=== PATIENT | male | born 1955 | race Caucasian/White ===

== ENCOUNTER 2019-05-19 16:11 | Inpatient (IN) | payer MEDICARE, OTHER ==
[~2019-05-19] VITALS: Ht 177.8 cm; Wt 81.6 kg
--- NOTE | 2019-05-19 16:12 | NUR ---
PT BIBRA 37 C/O SOB AFTER TOOTH EXTRACTION, PT IS ON 76% ON ROOM AIR, PT IS AAOX4, NOTED RESPIRATORY DISTRESS, HOOKED TO C-PAP MONITOR BY RT, HOOKED TO MONITOR, KEPT RESTED AND COMFORTABLE, WILL CONTINUE TO MONITOR.
[2019-05-19] MEDS ORDERED: NITROGLYCERIN 0.4 MG/TAB BOTTLE ONE (16:13)
--- NOTE | 2019-05-19 16:15 | NUR ---
SEEN AND EXAMINED BY .
--- NOTE | 2019-05-19 16:20 | NUR ---
PATIENT PLACED IN BIPAP, W SETTINGS OF: IPAP/EPAP: 15/5 RATE: 14 02: 60%
--- NOTE | 2019-05-19 16:24 | NUR ---
RT NOTE PT PLACED ON BIPAP PER MD ORDER. ST 15 BUR 12 100%. ALARMS SET PER PROTOCOL AND AUDIBLE. BIPAP PLUGGED IN TO RED OUTLET. AMBU BAG AT BED SIDE. Addendum: 05/19/19 at 1625 by DEVANTE HADLEY RT Amended: Links added.
[2019-05-19 16:28] LABS: BASOPHILS # (AUTO) 0.1 /CMM (0.0-0.2); EOSINOPHILS % (AUTO) 0.4 % (0.0-6.0); HEMATOCRIT 45 % (39-51); HEMOGLOBIN 14.5 g/dL (13.5-17.5); LYMPHOCYTES # (AUTO) 1.8 /CMM (0.8-4.8); LYMPHOCYTES % (AUTO) 15.4 % (20.0-44.0); MEAN CORPUSCULAR HGB CONC 32 g/dl (31.0-36.0); MEAN CORPUSCULAR VOLUME 81 fL (80-96); MONOCYTES # (AUTO) 0.5 /CMM (0.1-1.30); MONOCYTES % (AUTO) 4.4 % (2.0-12.0); NEUTROPHILS # (AUTO) 9.1 /CMM (1.8-8.9); NEUTROPHILS % (AUTO) 78.8 % (43.0-81.0); PLATELET COUNT (AUTO) 224 /CMM (150-450); RED BLOOD CELL COUNT(AUTO) 5.55 MIL/uL (4.5-6.0); WHITE BLOOD COUNT (AUTO) 11.6 K/uL (4.3-11.0)
[2019-05-19] MEDS ORDERED: NITROGLYCERIN 0.4 MG/TAB BOTTLE SL ONE (16:30)
[2019-05-19] MEDS ORDERED: ASPIRIN 81 MG TAB.CHEW PO ONE (16:30)
[2019-05-19] MEDS ORDERED: NTG 50 MG/D5W250 ML BOTTL 250 ML IV PRN (16:30)
--- NOTE | 2019-05-19 16:34 | NUR ---
NTG 50MG/250ML IN D5W STARTED AT 40MCG AT 12ML/HR ORDERED BY DR ROMERO.
[2019-05-19 16:39] LABS: CALCIUM, SERUM 9.5 mg/dL (8.5-10.1); CREATININE 1.1 mg/dL (0.6-1.3); POTASSIUM 3.2 mmol/L (3.5-5.1)
[2019-05-19] MEDS ORDERED: ASPIRIN 81 MG TAB.CHEW ONE (16:39)
[2019-05-19] MEDS ORDERED: TICA90TA PO (16:41)
[2019-05-19] MEDS ORDERED: PIOG30TA10 PO (16:41)
[2019-05-19] MEDS ORDERED: METO25TA20 PO (16:41)
[2019-05-19] MEDS ORDERED: LISI-603 PO (16:41)
[2019-05-19] MEDS ORDERED: ASPI-1152 PO (16:41)
[2019-05-19] MEDS ORDERED: ATOR40TA PO (16:41)
[2019-05-19] MEDS ORDERED: SITA1TAB6 PO (16:41)
[2019-05-19] MEDS ORDERED: NITR0.4T48 PO (16:41)
--- NOTE | 2019-05-19 16:45 | NUR ---
RECEIVED VERBAL ORDER FROM DR ROMERO TO INCREASE NTG TO 60 MCG/MIN. BP 161/115, HR 96. CARRIED OUT
[2019-05-19] MEDS ORDERED: POTASSIUM CHLORIDE 20 MEQ TAB.PRT.SR PO ONE ×2 (17:29→17:30)
[2019-05-19] MEDS ORDERED: FUROSEMIDE 20 MG/2 ML VIAL ONE (17:29)
[2019-05-19 17:30] LABS: ABG BASE EXCESS -0.9 mmol/L; ABG OXYGEN SATURATION 82.8 % (92.0-98.5); ABG PCO2 37.2 mmHg (35.0-45.0); ABG PH 7.414 (7.350-7.450); ABG PO2 47.2 mmHg (75.0-100.0); COHb 0.7 % (0.5-1.5); MetHb 0.5 % (0.0-1.5); O2Hb 81.8 % (94.0-97.0); SITE, ABG Other; VENT MODE, BG ST 15/5 60%
[2019-05-19] MEDS ORDERED: FUROSEMIDE 20 MG/2 ML VIAL IV ONE (17:30)
--- NOTE | 2019-05-19 17:42 | NUR ---
RT AT BEDSIDE. NEW BIPAP SETTINGS: IPAP/EPAP: 14/5 RATE: 15 O2: 40%
--- NOTE | 2019-05-19 18:29 | NUR ---
EPIC paged for panel call, awaiting call back
--- NOTE | 2019-05-19 18:45 | NUR ---
Dr. Lowe called back for panel call
--- NOTE | 2019-05-19 19:05 | NUR ---
CHLOE ABRAHAM AT BEDSIDE FOR EVAL.
--- NOTE | 2019-05-19 19:30 | NUR ---
ICU BED 250
--- NOTE | 2019-05-19 19:32 | NUR ---
REPORT GIVEN TO ARISTEO GHOSH FOR [facility]
[2019-05-19] MEDS ORDERED: ALBUTEROL FS 2.5 MG/0.5 ML VIAL.NEB NEB PRN (20:00)
[2019-05-19] MEDS ORDERED: DEXTROSE 50%-WATER 50 ML DISP.SYRIN IV PRN (20:00)
[2019-05-19] MEDS ORDERED: NTG 50 MG/D5W250 ML BOTTL 25 ML IV PRN (20:00)
[2019-05-19] MEDS ORDERED: POTASSIUM CL. PREMIX PERIPHER. 50 ML IV SCH (20:00)
[2019-05-19] MEDS ORDERED: IPRATROPIUM BROMIDE 14 GM INHALER (or 12.9 GM) IH PRN (20:00)
--- NOTE | 2019-05-19 20:08 | NUR ---
REPORT GIVEN TO AUGIE PRADHAN FOR [facility].
--- NOTE | 2019-05-19 20:19 | NUR ---
RT DISCONTINUED BIPAP. PT TOLERATING WELL WITHOUT ANY RESP DISTRESS. O2 SAT 95%
--- NOTE | 2019-05-19 20:30 | NUR ---
NTG TITRATED DOWN TO 50MCG/HR FROM 60MCG/HR
--- NOTE | 2019-05-19 20:40 | NUR ---
NTG TITRATED DOWN TO 40MCG/HR
--- NOTE | 2019-05-19 20:50 | NUR ---
NTG TITRATED DOWN TO 30MCG/HR VS: HR:76 BP: 136/66 R: 18 O2%: 95. TOLERATING WELL. VSS. AWARE
--- NOTE | 2019-05-19 21:00 | NUR ---
NTG DOWN TO 20MCG/HR
--- NOTE | 2019-05-19 21:10 | NUR ---
NTG TITRATED DOWN TO 10MCG/HR
--- NOTE | 2019-05-19 21:16 | NUR ---
called RN SUP for LISETH bed waiting for bed assignment
--- NOTE | 2019-05-19 21:19 | NUR ---
LISETH 105
--- NOTE | 2019-05-19 21:20 | NUR ---
NTG DC PER MD ORDER. PT TOLERATING WELL.
--- NOTE | 2019-05-19 21:21 | NUR ---
CORRECTION LISETH BED 106
--- NOTE | 2019-05-19 21:30 | NUR ---
PT TOLERATING WELL ON NTG D/C. VSS STABLE: 71, 137/76, 17, 99
--- NOTE | 2019-05-19 21:34 | NUR ---
REPORT GIVEN TO AUGIE ROMO FOR [facility]
[2019-05-19] MEDS: ATORVASTATIN 40 MG TABLET PO SCH ×2 (22:00→23:06)
--- NOTE | 2019-05-19 22:05 | NUR ---
US AT BEDSIDE
--- NOTE | 2019-05-19 22:25 | NUR ---
PT TRANSPORTED TO UNIT ON [place] WITH EMT AND RN AT BEDSIDE W/ ACLS PROTOCOL. NAD NOTED DURING TRANSPORT. PT AMBULATED FROM GURNEY TO BED W/O ASSIST ON STEADY GAIT.
[2019-05-19 22:46] VITALS: BP 132/79
[2019-05-19] MEDS: BLOOD SUGAR DIAGNOSTIC 1 EACH STRIP IN SCH (23:06)
[2019-05-20] VITALS: BP 121/72
[2019-05-20 04:00] VITALS: BP 133/77
[2019-05-20] MEDS: BLOOD SUGAR DIAGNOSTIC 1 EACH STRIP IN SCH ×3 (05:42→17:03)
--- NOTE | 2019-05-20 06:38 | NUR ---
LISETH RN NOTES AWAKE & RESPONSIVE. NOT IN ANY DISTRESS. NO SOB NOTED. DENIES ANY PAIN OR DISCOMFORT AT THIS TIME. ON TELE SR WITH OCC PVCS WITH BBB @ 67 WITH IV-HL PATENT & INTACT. MONITORED ACCORDINGLY. CALL LIGHT WITHIN REACH. BED IN LOWEST POSITION. SR UP X 2 FOR SAFETY. WILL ENDORSE TO NEXT SHIFT.
--- NOTE | 2019-05-20 07:00 | NUR ---
LISETH RN OPENING NOTES RECEIVED PT LYING ON BED,ALERT/ORIENTED X4.ON TELE HR IS 80 NSR WITH INVERTED T WAVE.ON NC O2 6LPM CONTINUOUSLY,TOLERATING WELL.NO SOB AND ACUTE DISTRESS NOTED.IV LINE IS ON LEFT FA G18,SL.SITE IS CLEAN,DRY AND INTACT.NO INFILTRATION NOTED.FAMILY IS AT BEDSIDE.SAFETY IS MAINTAINED AT ALL TIMES.CALL LIGHT IS WITHIN REACH.WILL CONTINUE TO MONITOR THE PT CLOSELY.
[2019-05-20 08:00] VITALS: BP 132/69
[2019-05-20] MEDS: FUROSEMIDE 40 MG/4 ML VIAL IV SCH ×2 (08:13→16:16)
[2019-05-20] MEDS: ASPIRIN EC 81 MG TABLET.DR PO SCH (08:14)
[2019-05-20] MEDS: AMOX/CLAVULANATE 250 MG TABLET PO SCH ×2 (08:14→21:01)
[2019-05-20] MEDS: LISINOPRIL (20MG) 20 MG TABLET PO SCH (08:14)
[2019-05-20] MEDS: METOPROLOL TARTRATE 25 MG TABLET PO SCH ×2 (08:14→16:17)
[2019-05-20] MEDS ORDERED: PIOGLITAZONE HCL 15 MG TABLET PO SCH (09:00)
[2019-05-20] MEDS ORDERED: PIOGLITAZONE HCL 30 MG PO SCH (09:00)
[2019-05-20] MEDS: TICAGRELOR 90 MG TABLET PO SCH ×2 (09:38→16:16)
[2019-05-20 11:13] LABS: BASOPHILS # (AUTO) 0.1 /CMM (0.0-0.2); EOSINOPHILS % (AUTO) 0.6 % (0.0-6.0); HEMATOCRIT 39 % (39-51); HEMOGLOBIN 12.4 g/dL (13.5-17.5); LYMPHOCYTES % (AUTO) 27.1 % (20.0-44.0); MEAN CORPUSCULAR HGB CONC 32 g/dl (31.0-36.0); MEAN CORPUSCULAR VOLUME 81 fL (80-96); MONOCYTES # (AUTO) 0.7 /CMM (0.1-1.30); MONOCYTES % (AUTO) 9.4 % (2.0-12.0); NEUTROPHILS # (AUTO) 4.5 /CMM (1.8-8.9); NEUTROPHILS % (AUTO) 61.9 % (43.0-81.0); PLATELET COUNT (AUTO) 169 /CMM (150-450); RED BLOOD CELL COUNT(AUTO) 4.77 MIL/uL (4.5-6.0); WHITE BLOOD COUNT (AUTO) 7.3 K/uL (4.3-11.0)
[2019-05-20] MEDS ORDERED: IPRATROPIUM NEB FS 0.5 MG/2.5 ML AMPUL.NEB NEB PRN (11:30)
[2019-05-20 11:38] LABS: CALCIUM, SERUM 8.9 mg/dL (8.5-10.1); POTASSIUM 3.7 mmol/L (3.5-5.1)
[2019-05-20 12:00] VITALS: BP 129/75
[2019-05-20] MEDS: INSULIN REGULAR, HUMAN 100 UNIT/ML 3 ML VIAL SQ PRN ×2 (12:00→17:04)
[2019-05-20 16:00] VITALS: BP 141/69
--- NOTE | 2019-05-20 18:28 | NUR ---
[employer] TECHNICIAN CLOSING NOTES PT IS LYING ON BED,ON 6LPM O2 VIA NC CONTINUOUSLY.NO SOB AND ACUTE DISTRESS NOTED.ON NSR.RESPIRATION IS EVEN AND NONLABORED.IV LINE IS IN PLACE.NO SIGNIFICANT CHANGES NOTED IN THE SHIFT.FAMILY IS AT BEDSIDE.WILL ENDORSE TO [employer]PER[employer] RN FOR [facility].
[2019-05-20 20:00] VITALS: BP 133/74
--- NOTE | 2019-05-20 20:00 | NUR ---
TELE/RN OPENING NOTES PATIENT IN BED,AWAKE, ALERT X3, ABLE TO VERBALIZE NEEDS, ON ROOM AIR WITH SATURATION AT 99%, DENIES PAIN. MONITORED FOR ANY CHANGES. PROVIDED AND OFFERED FLUIDS, SKIN WARM TO TOUCH. SKIN INTACT, LEFT FORE ARM 18 GAUGE PATENT, RECEIVED ENDORSEMENT FROM AM RN FOR [facility]. BLOOD PRESSURE AT 133/74. BED LOCKED, CALL LIGHTS WITHIN REACH. WILL MONITOR.
[2019-05-20] MEDS: ATORVASTATIN 40 MG TABLET PO SCH (21:01)
[2019-05-21] VITALS: BP 148/78
[2019-05-21] MEDS: BLOOD SUGAR DIAGNOSTIC 1 EACH STRIP IN SCH ×2 (00:04→05:55)
[2019-05-21 04:00] VITALS: BP 155/89
--- NOTE | 2019-05-21 06:00 | NUR ---
TELE/RN NOTES PATIENT ABLE TO SLEEP DURING THE NIGHT, ALERT, COOPERATIVE AND PARTICIPATIVE TO CARE, ON OXYGEN VIA NC AT 6LITER BUT ABLE TO VERBALIZE IMPROVED BREATHING THAT HE DOESN NEED THE OXYGEN AT TIMES. BED LOCKED, CALL LIGHTS WITHIN REACH. PROVIDED AND OFFERED FLUIDS, COMPLIANT TO CARE, OV SITE ON LEFT FOREARM PATENT. WILL ENDORSE TO AM RN FOR [facility].
--- NOTE | 2019-05-21 07:00 | NUR ---
SUPERVISOR [employer] OPENING NOTES PATIENT RECEIVED BY PM SHIFT, PATIENT WAS AWAKE AND COOPERATIVE , PATIENT A/O X4. AND IS AWARE OF TREATMENT PLAN AND PLAN OF CARE. PATIENT WAS SATURATING WELL IN ROOM AIR. NO SIGNS OF DISTRESS. PATIENT LUNG SOUNDS CLEAR IN ALL POWELL. PATIENT BED LOWEST POSITION, SAFETY MAINTAINED. CALL LIGHT WITH IN REACH.
[2019-05-21] MEDS: FUROSEMIDE 40 MG/4 ML VIAL IV SCH ×2 (09:00→09:27)
[2019-05-21] MEDS: AMOX/CLAVULANATE 250 MG TABLET PO SCH (09:23)
[2019-05-21] MEDS: METOPROLOL TARTRATE 25 MG TABLET PO SCH (09:23)
[2019-05-21] MEDS: ASPIRIN EC 81 MG TABLET.DR PO SCH (09:23)
[2019-05-21 09:24] VITALS: BP 154/83
[2019-05-21] MEDS: TICAGRELOR 90 MG TABLET PO SCH (09:24)
[2019-05-21] MEDS: LISINOPRIL (20MG) 20 MG TABLET PO SCH (09:24)
--- NOTE | 2019-05-21 10:56 | NUR ---
RT PATIENT AND FAMILY MEMBER REFUSED ABG AND ALL OTHER MEDICAL SERVICES AT THIS TIME. EXPLAINS THAT THEY WANT TO LEAVE AND BEEN SEEN BY PATIENTS PRIMARY PHYSICIAN.
--- NOTE | 2019-05-21 11:00 | NUR ---
HOISTMAN CLOSING NOTES PATIENT WENT AMA, PRIMARY ALLEGRA MARIA WAS INFORMED ABOUT PATIENT
== END 2019-05-21 11:00 | disposition left against medical advice (07) | DRG 189 ==
LOC: ER 16:11 → ICU 19:54 → TELE-TD 21:22 → TELE1 05-20 13:39
PROVIDERS: ADMIT Registered Nurse; ATTEND Registered Nurse
PROC: 5A09357 Assistance with Respiratory Ventilation, Less than 24 Consecutive Hours, Continuous Positive Airway Pressure (ICD-10-PCS; principal; 2019-05-19)
DX: J95.821 Acute postprocedural respiratory failure (principal); I21.A1 Myocardial infarction type 2; I50.41 Acute combined systolic (congestive) and diastolic (congestive) heart failure; I11.0 Hypertensive heart disease with heart failure; I25.2 Old myocardial infarction; E11.9 Type 2 diabetes mellitus without complications; D72.829 Elevated white blood cell count, unspecified; E87.6 Hypokalemia; E78.5 Hyperlipidemia, unspecified; E66.9 Obesity, unspecified; Z68.25 Body mass index [BMI] 25.0-25.9, adult; I25.10 Atherosclerotic heart disease of native coronary artery without angina pectoris; Z98.61 Coronary angioplasty status; T41.3X5A Adverse effect of local anesthetics, initial encounter; T44.5X5A Adverse effect of predominantly beta-adrenoreceptor agonists, initial encounter; Y92.89 Other specified places as the place of occurrence of the external cause; F41.9 Anxiety disorder, unspecified; I45.10 Unspecified right bundle-branch block; F43.8 Other reactions to severe stress; Y83.8 Other surgical procedures as the cause of abnormal reaction of the patient, or of later complication, without mention of misadventure at the time of the procedure; Y82.8 Other medical devices associated with adverse incidents
CPT/HCPCS: 36415; 36600; 71045-TC; 80048-TC; 82803-TC; 82962-TC; 84484-TC; 85025-TC; 87081-TC; 93307-TC; 94799-TC; G0378; J1815; J1940; J3490